=== PATIENT | female | born 1970 | race Caucasian/White ===

== ENCOUNTER 2018-02-21 06:32 | Day surgery (SDC) | payer BC ==
[2018-02-16 15:49] LABS: BASOPHILS % (AUTO) 0.5 % (0-1); EOSINOPHILS # (AUTO) 0.2 X10'3 (0-0.9); EOSINOPHILS % (AUTO) 1.8 % (0-6); LYMPHOCYTES # (AUTO) 2.2 X10'3 (1.1-4.8); LYMPHOCYTES % (AUTO) 25.2 % (21-51); MEAN CORPUSCULAR HEMOGLOBIN 29.7 PG (27.0-31.0); MEAN CORPUSCULAR HGB CONC 34.4 % (33.0-36.5); MEAN CORPUSCULAR VOLUME 86.5 FL (78-98); MEAN PLATELET VOLUME 8.4 FL (7.4-10.4); MONOCYTES # (AUTO) 0.4 X10'3 (0-0.9); MONOCYTES % (AUTO) 4.5 % (2-12); NEUTROPHILS # (AUTO) 5.9 X10'3 (1.8-7.7); PRE OP HEMATOCRIT 40.2 % (35.0-45.0); PRE OP HEMOGLOBIN 13.8 g/dL (12.0-16.0); PRE OP PLATELET COUNT 313 X10'3 (140-440); RED BLOOD COUNT 4.65 X10'6 (4.20-5.60); RED CELL DISTRIBUTION WIDTH 13.4 % (11.5-14.5)
[2018-02-16 16:01] LABS: PRE OP INR 0.9 INR; PRE OP PROTIME 9.7 SECONDS (9.0-12.0)
[2018-02-16 16:06] LABS: ALBUMIN 3.9 G/DL (3.4-5.0); ALBUMIN/GLOBULIN RATIO 1.2 (1.1-1.5); ALKALINE PHOSPHATASE 91 IU/L (46-116); BLOOD UREA NITROGEN 14 MG/DL (7-18); BUN/CREATININE RATIO 13.5 (6.6-38.0); CALCIUM 9.4 MG/DL (8.5-10.1); CHLORIDE 102 MMOL/L (99-107); CREATININE 1.04 MG/DL (0.40-0.90); PRE OP ALT 38 U/L (30-65); PRE OP ANION GAP 9 (8-16); PRE OP AST 20 U/L (10-37); PRE OP BILIRUB, TOTAL 0.4 MG/DL (0.0-1.0); PRE OP GLUCOSE 149 MG/DL (70-104); PRE OP POTASSIUM 4.1 MMOL/L (3.4-5.1); PRE OP SODIUM 137 MMOL/L (135-145); TOTAL CARBON DIOXIDE 26.1 MMOL/L (24-32); TOTAL PROTEIN 7.1 G/DL (6.4-8.2); eGFR 57 ML/MIN
[2018-02-16 16:08] LABS: HEMOGLOBIN A1C 6.4 % (4.5-6.2)
[~2018-02-21] VITALS: Ht 167.6 cm; Wt 113.9 kg
[2018-02-21] VITALS (18 sets, daily range): BP systolic 94–127; BP diastolic 55–84
[~2018-02-21 06:32] MED LIST: ATOR40TA PO; BUSP10TA11 PO; FLUO20CA39 PO; LOSA50TA3 PO; METF500T7 PO; OMEP20TA5 PO; ceFOXitin 2 GM ADDvantage bag 100 ML IV ONE; famotidine 20mg tablet PO ONE
[2018-02-21] MEDS ORDERED: clindamycin phosphate 40gm vag cream ONE (06:46)
[2018-02-21] MEDS ORDERED: LIDOcaine 1% 30ml preserv. free vial ONE (06:46)
[2018-02-21] MEDS ORDERED: ceFAZolin 1000mg inj ONE (06:46)
[2018-02-21] MEDS ORDERED: morphine 10mg/ml inj. ONE (06:46)
[2018-02-21] MEDS ORDERED: vasoPRESSIN 20 units/ml inj. ONE (06:47)
[2018-02-21] MEDS: ringers solution, lacted 1,000 ML IV SCH ×4 (06:59→19:19)
[2018-02-21] MEDS ORDERED: fluoroscein sod 10% (100mg/ml) 5ml vial ONE (08:25)
[2018-02-21] MEDS ORDERED: dexamethasone sod phosphate 10mg/ml inj ONE (08:25)
[2018-02-21] MEDS ORDERED: neostigmine methylsulfate 1 MG/ML 10ml vial ONE (08:25)
[2018-02-21] MEDS ORDERED: sevoflurane 250ml liquid IH ONE (08:25)
[2018-02-21] MEDS ORDERED: midazolam 2 mg/2 ml injection ONE (08:33)
[2018-02-21] MEDS ORDERED: fentaNYL /PF 50mcg/ml 5ml ampule ONE (08:33)
[2018-02-21] MEDS ORDERED: propofol inj 20 ML IV ONE (08:34)
[2018-02-21] MEDS ORDERED: rocuronium 10mg/ml inj IV ONE (08:34)
[2018-02-21] MEDS ORDERED: LIDOcaine 2% (20mg/ml) 5ml vial ONE (08:34)
[2018-02-21] MEDS ORDERED: ondansetron/PF 4mg/2ml inj ONE (08:53)
[2018-02-21] MEDS ORDERED: ketorolac trometh. 30mg/ml inj. ONE (08:53)
[2018-02-21] MEDS ORDERED: furosemide 40mg/4ml inj ONE (10:10)
[2018-02-21] MEDS ORDERED: morphine 4 MG/ML inj SYRINge IV PRN ×2 (10:40)
[2018-02-21] MEDS ORDERED: meperidine/PF 25mg/ml syringe IV PRN ×3 (10:40)
[2018-02-21] MEDS ORDERED: ondansetron/PF 4mg/2ml inj IV PRN (10:40)
[2018-02-21] MEDS ORDERED: proCHLORperazine 10 MG/2 ml inj IV PRN (10:40)
[2018-02-21] MEDS ORDERED: ringers solution, lacted 1,000 ML IV SCH (10:40)
[2018-02-21] MEDS ORDERED: diphenhydrAMINE 50 mg/ml inj IV PRN (10:45)
[2018-02-21] MEDS ORDERED: temazepam 15mg capsule PO PRN (10:45)
[2018-02-21] MEDS ORDERED: naloxone 0.4 mg/ml inj IV PRN (10:45)
[2018-02-21] MEDS ORDERED: HYDROcodone/acetaminophen 5mg/325mg tablet PO PRN ×2 (10:45)
[2018-02-21] MEDS ORDERED: normal saline 500ml IV soln 500 ML IV PRN (10:45)
[2018-02-21] MEDS ORDERED: ketorolac trometh. 30mg/ml inj. IV PRN (10:45)
[2018-02-21] MEDS ORDERED: CADD PCA waste documentation MC PRN (10:45)
[2018-02-21] MEDS ORDERED: magnesium hydroxide 30ml (MOM) UD suspension PO PRN (10:45)
[2018-02-21] MEDS: HYDROmorphone/NS 1 mg/ml CADD 50 ML IV SCH ×7 (11:33→23:00)
[2018-02-21] MEDS: simethicone 80mg chew tab PO SCH ×2 (16:05→17:06)
[2018-02-21] MEDS: metFORMIN 500mg tablet PO SCH (17:06)
[2018-02-21] MEDS: busPIRone 5mg tablet PO SCH (20:16)
[2018-02-21] MEDS: docusate sod 100mg capsule PO SCH (20:17)
[2018-02-21] MEDS ORDERED: atorvastatin 20mg tablet PO SCH (21:00)
[2018-02-21] MEDS ORDERED: losartan 50mg tablet PO SCH (21:00)
[2018-02-22] VITALS: BP 115/69
[2018-02-22] MEDS: ondansetron/PF 4mg/2ml inj IV PRN ×2 (00:22→07:53)
[2018-02-22] MEDS: HYDROmorphone/NS 1 mg/ml CADD 50 ML IV SCH ×6 (01:00→11:00)
[2018-02-22] MEDS: ringers solution, lacted 1,000 ML IV SCH ×2 (02:41→10:41)
[2018-02-22 04:35] LABS: BASOPHILS % (AUTO) 0.1 % (0-1); EOSINOPHILS % (AUTO) 0 % (0-6); HEMATOCRIT 36.7 % (35.0-45.0); HEMOGLOBIN 12.5 g/dl (12.0-16.0); LYMPHOCYTES # (AUTO) 0.7 X10'3 (1.1-4.8); LYMPHOCYTES % (AUTO) 5.3 % (21-51); MEAN CORPUSCULAR HEMOGLOBIN 29.7 PG (27.0-31.0); MEAN CORPUSCULAR VOLUME 87.5 FL (78-98); MEAN PLATELET VOLUME 8.6 FL (7.4-10.4); MONOCYTES # (AUTO) 0.6 X10'3 (0-0.9); MONOCYTES % (AUTO) 4.1 % (2-12); NEUTROPHILS # (AUTO) 12.5 X10'3 (1.8-7.7); NEUTROPHILS % (AUTO) 90.5 % (42-75); PLATELET COUNT 275 X10'3 (140-440); RED BLOOD COUNT 4.19 X10'6 (4.20-5.60); RED CELL DISTRIBUTION WIDTH 13.3 % (11.5-14.5); WHITE BLOOD COUNT 13.8 X10'3 (4.5-11.0)
[2018-02-22 04:55] VITALS: BP 125/81
[2018-02-22] MEDS ORDERED: pantoprazole 40mg Tablet.DR PO SCH (07:30)
[2018-02-22] MEDS: docusate sod 100mg capsule PO SCH (07:55)
[2018-02-22] MEDS: busPIRone 5mg tablet PO SCH (07:56)
[2018-02-22] MEDS: simethicone 80mg chew tab PO SCH ×3 (07:56→16:53)
[2018-02-22] MEDS: metFORMIN 500mg tablet PO SCH ×2 (07:56→16:53)
[2018-02-22 08:00] VITALS: BP 99/60
[2018-02-22] MEDS ORDERED: FLUoxetine 20mg capsule PO SCH (08:00)
[2018-02-22 11:00] VITALS: BP 107/54
== END 2018-02-22 17:33 | disposition home or self-care (01) ==
LOC: PAS 06:32 → SUR 3N 10:41 → PAS 02-22 17:33
PROVIDERS: ATTEND Specialist
DX: N73.6 Female pelvic peritoneal adhesions (postinfective) (principal); N83.8 Other noninflammatory disorders of ovary, fallopian tube and broad ligament; N83.291 Other ovarian cyst, right side; N90.89 Other specified noninflammatory disorders of vulva and perineum; L91.8 Other hypertrophic disorders of the skin; N84.3 Polyp of vulva; F41.8 Other specified anxiety disorders; M19.90 Unspecified osteoarthritis, unspecified site; F32.9 Major depressive disorder, single episode, unspecified; G43.909 Migraine, unspecified, not intractable, without status migrainosus; I10 Essential (primary) hypertension; E66.9 Obesity, unspecified; K21.9 Gastro-esophageal reflux disease without esophagitis; E11.9 Type 2 diabetes mellitus without complications; Z68.41 Body mass index [BMI] 40.0-44.9, adult; Z88.2 Allergy status to sulfonamides; Z72.89 Other problems related to lifestyle; Z90.49 Acquired absence of other specified parts of digestive tract; Z90.710 Acquired absence of both cervix and uterus; Z79.84 Long term (current) use of oral hypoglycemic drugs; Z79.891 Long term (current) use of opiate analgesic; Z98.890 Other specified postprocedural states; Z79.899 Other long term (current) drug therapy
CPT/HCPCS: 11421; 36415; 49329; 57240; 57288; 58661; 80053; 82948; 83036; 85025; 85610; 85730; 86885; 86900; 86901; 87070; A4315; A4355; C1771; J0690; J0694; J1100; J1170; J1885; J1940; J2001; J2250; J2270; J2405; J2704; J2710; J3010; J3490; J7030; J7120; A6250; A7000

== ENCOUNTER 2022-11-20 12:23 | Outpatient (CLI) | payer BC ==
[~2022-11-20 12:23] MED LIST changes: +METF-900 PO; -METF500T7 PO; +OMEP20TA43 PO; -OMEP20TA5 PO; -ceFOXitin 2 GM ADDvantage bag 100 ML IV ONE; -famotidine 20mg tablet PO ONE
[2022-11-22] MEDS ORDERED: iohexol 300mg/ml 100ml inj. ONE (02:19)
== END 2022-11-20 23:59 | disposition home or self-care (01) ==
LOC: RAD 12:23
PROVIDERS: ATTEND Nurse Practitioner Primary Care
DX: R07.9 Chest pain, unspecified (principal)
CPT/HCPCS: 93005

== ENCOUNTER 2022-12-11 13:43 | Outpatient (CLI) | payer BC | END 2022-12-11 23:59 | disposition home or self-care (01) | LOC: RAD 13:43 | PROVIDERS: ATTEND Nurse Practitioner Primary Care | DX: R06.00 Dyspnea, unspecified (principal) | CPT/HCPCS: 93005 ==

== ENCOUNTER 2022-12-14 14:11 | Outpatient (CLI) | payer BC | END 2022-12-14 23:59 | disposition home or self-care (01) | LOC: CARD DIAG 14:11 | PROVIDERS: ATTEND Nurse Practitioner Primary Care | DX: I08.0 Rheumatic disorders of both mitral and aortic valves (principal); R06.00 Dyspnea, unspecified | CPT/HCPCS: 93306 ==

== ENCOUNTER 2023-11-19 12:11 | Outpatient (CLI) | payer BC ==
[~2023-11-19 12:11] MED LIST changes: +LOSA-416 PO; -LOSA50TA3 PO
[2023-11-19 12:42] LABS: BASOPHILS # (AUTO) 0.1 X10'3 (0-0.2); BASOPHILS % (AUTO) 0.8 % (0-1); EOSINOPHILS # (AUTO) 0.1 X10'3 (0-0.9); EOSINOPHILS % (AUTO) 1.6 % (0-6); HEMATOCRIT 44.6 % (35.0-45.0); LYMPHOCYTES % (AUTO) 28.9 % (21-51); MEAN CORPUSCULAR HEMOGLOBIN 28.9 PG (27.0-31.0); MEAN CORPUSCULAR HGB CONC 33.6 g/dL (33.0-36.5); MEAN CORPUSCULAR VOLUME 86.1 FL (78-98); MONOCYTES # (AUTO) 0.4 X10'3 (0-0.9); NEUTROPHILS # (AUTO) 4.4 X10'3 (1.8-7.7); NEUTROPHILS % (AUTO) 62.7 % (42-75); PLATELET COUNT 291 X10'3 (140-440); RED BLOOD COUNT 5.18 X10'6 (4.20-5.60); RED CELL DISTRIBUTION WIDTH 13.5 % (11.5-14.5); WHITE BLOOD COUNT 7.1 X10'3 (4.5-11.0)
[2023-11-19 12:54] LABS: APTT 28 SECONDS (22-32)
[2023-11-19 12:55] LABS: ALBUMIN 3.5 G/DL (3.4-5.0); ANION GAP 8 (8-16); BLOOD UREA NITROGEN 22 MG/DL (7-18); BUN/CREATININE RATIO 24.7 (10.0-20.0); CALCIUM 8.8 MG/DL (8.5-10.1); CHLORIDE 105 MMOL/L (99-107); CHOL/HDL RATIO 3.9 (0.00-4.99); CHOLESTEROL 213 MG/DL (0-200); CREATININE 0.89 MG/DL (0.40-0.90); GLUCOSE 114 MG/DL (70-104); HDL CHOLESTEROL 55 MG/DL (35-60); LDL CHOLESTEROL 125 MG/DL (50-100); POTASSIUM 4.4 MMOL/L (3.5-5.1); SODIUM 143 MMOL/L (135-145); TOTAL CARBON DIOXIDE 30.1 MMOL/L (24-32); TRIGLYCERIDES 169 MG/DL (20-135); eGFR 66 ML/MIN
[2023-11-19 12:56] LABS: INR 0.9 INR
== END 2023-11-19 23:59 | disposition home or self-care (01) ==
LOC: LAB 12:11
PROVIDERS: ATTEND Internal Medicine Interventional Cardiology
DX: Z01.812 Encounter for preprocedural laboratory examination (principal); I11.9 Hypertensive heart disease without heart failure; E78.5 Hyperlipidemia, unspecified
CPT/HCPCS: 36415; 80048; 80061; 85025; 85610; 85730